=== PATIENT | female | born 1960 | race American Indian/Alaskan Native ===

== ENCOUNTER 2022-02-05 09:43 | Emergency (ER) | payer MEDICARE, OTHER ==
--- NOTE | 2022-02-05 10:47 | Emergency Department Report ---
<GAL FREY - Last Filed: 02/05/22 10:42> ED General Adult HPI - General Chief complaint: High BP Stated complaint: VOMITING/HYPERTENSION Source: patient, EMS Mode of arrival: Stretcher Limitations: No Limitations - History of Present Illness Initial comments: 61-year-old female presents to the ED complaining of dizziness, nausea ,and abdominal pain that started this a.m. Patient states she has a history of pancreatitis acid reflux and hypertension. She states that she was unable to take her medication this morning due to vomiting. She is alert and oriented x3. She denies any chest pain or shortness of breath is present. No acute distress noted. No ill appearance noted. Patient denies any recent weight loss, IV drug use, trauma, or dysuria. She denies any prior treatment to the ED. patient arrived by EMS -: This morning Severity scale (0 -10): 7 - Related Data Allergies Allergy/AdvReac Type Severity Reaction Status Date / Time Penicillins AdvReac Unknown Verified 02/05/22 09:48 ED Past Medical Hx - Past Medical History Previous Medical History?: Yes Hx Hypertension: Yes Additional medical history: pancreatitis (alcohol) - Surgical History Past Surgical History?: Yes Additional Surgical History: hip replacement - Social History Smoking Status: Never Smoker Substance Use Type: None ED Physical Exam - General Limitations: No Limitations ED Disposition Clinical Impression: Abdominal pain, Uncontrolled hypertension Disposition: 01 HOME / SELF CARE / HOMELESS Condition: Stable Instructions: Hypertension (ED), Abdominal Pain, Adult, [id number], Hypertension, Adult <JOANNE BERNAL - Last Filed: 02/05/22 12:56> ED Review of Systems ROS: Stated complaint: VOMITING/HYPERTENSION Other details as noted in HPI ED Course Vital Signs 02/05/22 02/05/22 02/05/22 09:45 10:01 10:06 Temperature 97.8 F Pulse Rate 68 65 Respiratory 17 17 Rate Blood Pressure Blood Pressure 170/88 178/97 [Left] O2 Sat by Pulse 100 100 Oximetry 02/05/22 02/05/22 02/05/22 10:16 10:30 10:46 Temperature Pulse Rate Respiratory Rate Blood Pressure 177/85 169/84 179/86 Blood Pressure [Left] O2 Sat by Pulse 100 99 99 Oximetry 02/05/22 02/05/22 02/05/22 11:00 11:16 11:32 Temperature Pulse Rate Respiratory Rate Blood Pressure 147/75 175/88 169/80 Blood Pressure [Left] O2 Sat by Pulse 100 100 100 Oximetry 02/05/22 12:19 Temperature Pulse Rate Respiratory 18 Rate Blood Pressure Blood Pressure [Left] O2 Sat by Pulse Oximetry ED Medical Decision Making - Lab Data Result diagrams: 02/05/22 11:06 02/05/22 11:06 Critical care attestation.: If time is entered above; I have spent that time in minutes in the direct care of this critically ill patient, excluding procedure time. ED Disposition Is pt being admited?: No Does the pt Need Aspirin: No
[2022-02-05] MEDS ORDERED: MORPHINE 4 MG/1 ML INJ IV ONE (11:37)
[2022-02-05] MEDS ORDERED: SODIUM CHLORIDE 0.9% 1000 ML 1,000 ML IV ONE (11:37)
[2022-02-05] MEDS ORDERED: ONDANSETRON 4 MG ODT TAB PO/SL ONE (11:37)
[2022-02-05 11:49] LABS: Basophils % (Auto) 0.6 % (0.0-1.8); Eosinophils % (Auto) 0.3 % (0.0-4.3); Hemoglobin 12.1 gm/dl (10.1-14.3); Lymphocytes # (Auto) 1.2 K/mm3 (1.2-5.4); Lymphocytes % (Auto) 15.9 % (13.4-35.0); Mean Corpuscular HGB Conc 35 % (30-34); Mean Corpuscular Volume 80 fl (79-97); Monocytes # (Auto) 0.2 K/mm3 (0.0-0.8); Monocytes % (Auto) 3.3 % (0.0-7.3); Platelet Count 191 K/mm3 (140-440); Red Blood Count 4.39 M/mm3 (3.65-5.03); Red Cell Distribution Width 14.8 % (13.2-15.2)
[2022-02-05 12:12] LABS: Alanine Aminotransferase 13 units/L (7-56); Albumin 4.8 g/dL (3.9-5)
[2022-02-05 12:14] LABS: Bilirubin,Direct < 0.2 mg/dL (0-0.2)
[2022-02-05 12:15] LABS: Alanine Aminotransferase 13 units/L (7-56); Albumin 4.7 g/dL (3.9-5); BUN/Creatinine Ratio 32; Blood Urea Nitrogen 16 mg/dL (7-17); Calcium 10.1 mg/dL (8.4-10.2); Hemolysis Index 13
[2022-02-05 13:09] LABS: Bilirubin,Urine NEG (Negative); Blood,Urine NEG (Negative); Color,Urine Straw (Yellow); Mucus,Urine FEW /HPF; Protein,Urine <15 mg/dL mg/dL (Negative); RBC,Urine < 1.0 /HPF (0.0-6.0); Urobilinogen,Urine < 2.0 mg/dL (<2.0); WBC,Urine < 1.0 /HPF (0.0-6.0)
[2022-02-05 13:52] VITALS: BP 154/98
== END 2022-02-05 13:51 | disposition home or self-care (01) ==
LOC: ED 09:43
DX: R10.9 Unspecified abdominal pain (principal); I10 Essential (primary) hypertension; Z88.0 Allergy status to penicillin
CPT/HCPCS: 80053; 80076; 81001; 82150; 83690; 85025; 96361; 96374; 99284; J2270; J7030; J3490; Q0162